=== PATIENT | female | born 1965 | race Caucasian/White ===

== ENCOUNTER 2019-02-27 13:18 | Emergency (ER) | payer SELFPAY ==
[2019-02-27] MEDS ORDERED: DICYCLOMINE HCL 10 MG CAP ONE (14:18)
[2019-02-27] MEDS ORDERED: ONDANSETRON 4 MG/2 ML VIAL ONE (14:19)
[2019-02-27] MEDS ORDERED: NA CHLORIDE 0.9% 1,000 ML ONE (14:19)
[2019-02-27 14:39] LABS: Absolute Lymphocytes (CBC) 1.2 K/uL (0.7-4.9); Basophils % 0.3 % (0-1.3); Hematocrit 40.4 % (36.0-45.0); Lymphocytes % 12.5 % (15.3-44.8); MPV 9.9 fL (7.6-11.3); RBC Red Blood Cell Count 4.94 M/uL (3.86-4.86)
[2019-02-27 14:51] LABS: Albumin 3.4 g/dL (3.4-5.0); Bilirubin Direct 0.1 mg/dL (0-0.2); Bilirubin Total 0.4 mg/dL (0.2-1.0); Potassium 3.5 mmol/L (3.5-5.1); Protein, Total 6.7 g/dL (6.4-8.2)
--- NOTE | 2019-02-27 15:17 | EDPHYS ---
Physician Documentation [facility] Name: Patrizia Montelongo Age: 53 yrs Sex: Female : 1965 Arrival Date: 02/27/2019 Time: 13:23 Bed 6 Private MD: ED Physician Chung Painter HPI: 02/27 14:25 This 53 yrs old Female presents to ER via Ambulatory with complaints of kb Abdominal Pain, Nausea/Vomiting/Diarrhea. 14:25 The patient presents with abdominal pain that is diffuse. Onset: The symptoms/episode kb began/occurred 4 day(s) ago. The symptoms do not radiate. Associated signs and symptoms: Pertinent positives: nausea, vomiting, and diarrhea. The symptoms are described as intermittent. Modifying factors: The symptoms are alleviated by nothing, the symptoms are aggravated by food. Severity of pain: At its worst the pain was moderate in the emergency department the pain is unchanged. The patient has not experienced similar symptoms in the past. The patient has not recently seen a physician. Historical: - Allergies: 13:25 peroxide; sv - PMHx: 13:25 None; sv - PSHx: 13:25 Tonsillectomy; sv - Immunization history:: Adult Immunizations up to date. - Social history:: Smoking status: Patient/guardian denies using tobacco. - Ebola Screening: : No symptoms or risks identified at this time. ROS: 14:24 Constitutional: Negative for fever, chills, and weight loss, ENT: Negative for injury, kb pain, and discharge, Neck: Negative for injury, pain, and swelling, Cardiovascular: Negative for chest pain, palpitations, and edema, Respiratory: Negative for shortness of breath, cough, wheezing, and pleuritic chest pain, Back: Negative for injury and pain, : Negative for injury, bleeding, discharge, and swelling, MS/Extremity: Negative for injury and deformity, Skin: Negative for injury, rash, and discoloration, Neuro: Negative for headache, weakness, numbness, tingling, and seizure. 14:24 Abdomen/GI: Positive for abdominal pain, nausea, vomiting, and diarrhea, Negative for constipation, abdominal distension, anorexia. Exam: 14:24 Constitutional: This is a well developed, well nourished patient who is awake, alert, kb and in no acute distress. Head/Face: Normocephalic, atraumatic. ENT: Nares patent. No nasal discharge, no septal abnormalities noted. Tympanic membranes are normal and external auditory canals are clear. Oropharynx with no redness, swelling, or masses, exudates, or evidence of obstruction, uvula midline. Mucous membranes moist. Neck: Trachea midline, no thyromegaly or masses palpated, and no cervical lymphadenopathy. Supple, full range of motion without nuchal rigidity, or vertebral point tenderness. No Meningismus. Chest/axilla: Normal chest wall appearance and motion. Nontender with no deformity. No lesions are appreciated. Cardiovascular: Regular rate and rhythm with a normal S1 and S2. No gallops, murmurs, or rubs. Normal PMI, no JVD. No pulse deficits. Respiratory: Lungs have equal breath sounds bilaterally, clear to auscultation and percussion. No rales, rhonchi or wheezes noted. No increased work of breathing, no retractions or nasal flaring. Abdomen/GI: Soft, non-tender, with normal bowel sounds. No distension or tympany. No guarding or rebound. No evidence of tenderness throughout. Back: No spinal tenderness. No costovertebral tenderness. Full range of motion. Skin: Warm, dry with normal turgor. Normal color with no rashes, no lesions, and no evidence of cellulitis. MS/ Extremity: Pulses equal, no cyanosis. Neurovascular intact. Full, normal range of motion. Neuro: Awake and alert, GCS 15, oriented to person, place, time, and situation. Cranial nerves II-XII grossly intact. Motor strength 5/5 in all extremities. Sensory grossly intact. Cerebellar exam normal. Normal gait. Vital Signs: 13:25 BP 145 / 97; Pulse 92; Resp 20; Temp 97.7; Pulse Ox 97% ; Weight 125.65 kg; Height 5 sv ft. 7 in. (170.18 cm); 13:25 Body Mass Index 43.38 (125.65 kg, 170.18 cm) sv MDM: 14:06 Patient medically screened. kb 14:24 Data reviewed: vital signs, nurses notes. Data interpreted: Pulse oximetry: on room air kb is 97 %. Interpretation: normal. 15:12 Counseling: I had a detailed discussion with the patient and/or guardian regarding: the kb historical points, exam findings, and any diagnostic results supporting the discharge/admit diagnosis, lab results, the need for outpatient follow up, a family practitioner, to return to the emergency department if symptoms worsen or persist or if there are any questions or concerns that arise at home. ED course: Pt reports she is feeling better after zofran. Educated on diagnostics. Pt has no abd tenderness and WCB is within normal limits. Pt educated to return for fever or worsening symptoms to be reevaluated for possible need for CT scan. 02/27 14:12 Order name: Basic Metabolic Panel; Complete Time: 14:53 kb 02/27 14:12 Order name: CBC with Diff; Complete Time: 14:53 kb 02/27 14:12 Order name: Hepatic Function; Complete Time: 14:53 kb 02/27 14:12 Order name: Lipase; Complete Time: 14:53 kb 02/27 14:12 Order name: IV Saline Lock; Complete Time: 14:32 kb 02/27 14:12 Order name: Labs collected and sent; Complete Time: 14:33 kb Administered Medications: 04:27 Drug: NS 0.9% 1000 ml Route: IV; Rate: 1000 ml; Site: left antecubital; sg 14:27 Drug: Zofran 4 mg Route: IVP; Site: left antecubital; sg 14:32 Drug: Bentyl 20 mg Route: PO; sg Disposition: 16:06 Co-signature as Attending Physician, Chung Painter MD. rn Disposition: 02/27/19 15:17 Discharged to Home. Impression: Nausea and vomiting, Diarrhea, unspecified, Generalized abdominal pain. - Condition is Stable. - Discharge Instructions: Food Choices to Help Relieve Diarrhea, Adult, Viral Gastroenteritis, Adult, [id number], Nausea and Vomiting, Adult, [id number], Abdominal Pain, Adult, [id number], Diarrhea, Adult, [id number]. - Prescriptions for Bentyl 20 mg Oral Tablet - take 1 tablet by ORAL route every 6 hours As needed; 20 tablet. Zofran 4 mg Oral Tablet - take 1 tablet by ORAL route every 6 hours As needed; 20 tablet. - Medication Reconciliation Form, Thank You Letter, Antibiotic Education, Prescription Opioid Use form. - Follow up: Emergency Department; When: As needed; Reason: Worsening of condition. Follow up: Private Physician; When: 2 - 3 days; Reason: Recheck today's complaints, Continuance of care, Re-evaluation by your physician. Signatures: Dispatcher [employer] EDDelmi Saunders, APPARATUS ENGINEERING TECHNOLOGIST-C APPARATUS ENGINEERING TECHNOLOGIST-Nhung Knott, RN RN Danny Saha RN RN sg Nieto, Roman, MD MD rn Calderon, Audri, RN RN aa5 Corrections: (The following items were deleted from the chart) 15:44 15:17 02/27/2019 15:17 Discharged to Home. Impression: Nausea and vomiting; Diarrhea, aa5 unspecified; Generalized abdominal pain. Condition is Stable. Forms are Medication Reconciliation Form, Thank You Letter, Antibiotic Education, Prescription Opioid Use. Follow up: Emergency Department; When: As needed; Reason: Worsening of condition. Follow up: Private Physician; When: 2 - 3 days; Reason: Recheck today's complaints, Continuance of care, Re-evaluation by your physician. kb
--- NOTE | 2019-02-27 15:17 | ER ---
Nurse's Notes [facility] Name: Patrizia Montelongo Age: 53 yrs Sex: Female : 1965 Arrival Date: 02/27/2019 Time: 13:23 Bed 6 Private MD: Diagnosis: Nausea and vomiting;Diarrhea, unspecified;Generalized abdominal pain Presentation: 02/27 13:24 Presenting complaint: Patient states: LUQ pain, n/v/d x 4 days. Transition of care: sv patient was not received from another setting of care. Onset of symptoms was February 23, 2019. Risk Assessment: Do you want to hurt yourself or someone else? Patient reports no desire to harm self or others. Initial Sepsis Screen: Does the patient meet any 2 criteria? No. Patient's initial sepsis screen is negative. Does the patient have a suspected source of infection? No. Patient's initial sepsis screen is negative. Care prior to arrival: None. 13:24 Method Of Arrival: Ambulatory sv 13:24 Acuity: BENITA 3 sv Historical: - Allergies: 13:25 peroxide; sv - PMHx: 13:25 None; sv - PSHx: 13:25 Tonsillectomy; sv - Immunization history:: Adult Immunizations up to date. - Social history:: Smoking status: Patient/guardian denies using tobacco. - Ebola Screening: : No symptoms or risks identified at this time. Screenin:33 Abuse screen: Denies threats or abuse. Denies injuries from another. Nutritional sg screening: No deficits noted. Tuberculosis screening: No symptoms or risk factors identified. Never had TB. Assessment: 14:33 General: Appears in no apparent distress. well groomed, well developed, well nourished, sg Behavior is calm, cooperative, appropriate for age, drowsy, quiet. Pain: Complains of pain in epigastric area, right upper quadrant and left upper quadrant Quality of pain is described as aching. Neuro: Level of Consciousness is awake, alert, obeys commands, Oriented to person, place, time, situation, Moves all extremities. Speech is normal, Facial symmetry appears normal. Cardiovascular: Capillary refill is brisk in bilateral fingers Patient's skin is warm and dry. Chest pain is denied. Respiratory: Airway is patent Respiratory effort is even, unlabored, Respiratory pattern is regular, symmetrical. GI: Abdomen is round non-distended. : No signs and/or symptoms were reported regarding the genitourinary system. EENT: No signs and/or symptoms were reported regarding the EENT system. Derm: Skin is pink, warm \T\ dry. Musculoskeletal: Circulation, motion, and sensation intact. Range of motion: intact in all extremities. Vital Signs: 13:25 BP 145 / 97; Pulse 92; Resp 20; Temp 97.7; Pulse Ox 97% ; Weight 125.65 kg; Height 5 sv ft. 7 in. (170.18 cm); 13:25 Body Mass Index 43.38 (125.65 kg, 170.18 cm) sv ED Course: 13:23 Patient arrived in ED. sv 13:24 Triage completed. sv 13:26 Arm band placed on. sv 13:48 Delmi Key FNP-C is [facility]. kb 13:48 Chung Painter MD is Attending Physician. kb 14:17 Danny Seth, RN is Primary Nurse. sg 14:27 No provider procedures requiring assistance completed. Initial lab(s) drawn, by or, sg sent to lab. Inserted saline lock: 22 gauge in left antecubital area, using aseptic technique. Blood collected. Administered Medications: 04:27 Drug: NS 0.9% 1000 ml Route: IV; Rate: 1000 ml; Site: left antecubital; sg 14:27 Drug: Zofran 4 mg Route: IVP; Site: left antecubital; sg 14:32 Drug: Bentyl 20 mg Route: PO; sg Outcome: 15:17 Discharge ordered by MD. kb 15:44 Patient left the ED. aa5 Signatures: Delmi Key FNP-C FNP-Ckb Verde, Stephanie, RN RN Danny Seth, RN RN Vaishnavi Allen RN RN aa5
[2019-02-27 15:50] VITALS: BP 145/97; TEMP 97.7; O2SAT 97
== END 2019-02-27 15:44 | disposition home or self-care (01) ==
LOC: ER 13:18
DX: R11.2 Nausea with vomiting, unspecified (principal); R19.7 Diarrhea, unspecified; R10.84 Generalized abdominal pain
CPT/HCPCS: 36415; 80048; 80076; 83690; 85025; 96374; 99283; J2405; J7030

== ENCOUNTER 2019-11-08 21:46 | Emergency (ER) | payer OTHER ==
[2019-11-08] MEDS ORDERED: ACETAMINOPHEN 500 MG TAB ONE (22:49)
[2019-11-08] MEDS ORDERED: NA CHLORIDE 0.9% 1,000 ML ONE (22:49)
[2019-11-08] MEDS ORDERED: ONDANSETRON 4 MG/2 ML VIAL ONE (22:57)
[2019-11-08 23:07] LABS: Arterial Blood Carboxyhemoglob 1.7 % (0-1.5); Blood Gas Oxyhemoglobin 92.9 % (94-97); Blood O2 Saturation 95.5 % (92-98.5)
[2019-11-08 23:27] LABS: Absolute Lymphocytes (CBC) 0.8 K/uL (0.7-4.9); Basophils % 0.2 % (0-1.3); Hematocrit 36.8 % (36.0-45.0); Lymphocytes % 6.1 % (15.3-44.8); MPV 10.5 fL (7.6-11.3); RBC Red Blood Cell Count 4.49 M/uL (3.86-4.86)
[2019-11-08 23:31] LABS: Protime INR 1.16
[2019-11-08 23:40] LABS: Urine Bacteria 20-50 /HPF (<20); Urine Culture Reflex Order REFLEXED
[2019-11-08 23:41] LABS: Urine RBC <5 /HPF (NONE SEEN)
[2019-11-08 23:49] LABS: ALT/SGPT 12 U/L (12-78); AST/SGOT 9 U/L (15-37); Albumin 3.1 g/dL (3.4-5.0); Alkaline Phosphatase 136 U/L (45-117); BUN Blood Urea Nitrogen 9 mg/dL (7-18); Bicarbonate 24 mmol/L (21-32); Bilirubin Direct 0.2 mg/dL (0-0.2); Bilirubin Total 0.7 mg/dL (0.2-1.0); Ferritin 145.4 ng/mL (8-388); Glucose Level 138 mg/dL (74-106); Lipase 34 U/L (73-393); Potassium 3.7 mmol/L (3.5-5.1); Protein, Total 7.1 g/dL (6.4-8.2); Sodium Level 139 mmol/L (136-145); Troponin (Emerg Dept Use Only) < 0.02 ng/mL (0.0-0.045)
--- NOTE | 2019-11-09 01:24 | EDPHYS ---
Physician Documentation [facility] Name: Patrizia Montelongo Age: 54 yrs Sex: Female : 1965 Arrival Date: 11/08/2019 Time: 21:49 Bed 15 Private MD: ED Physician Ronnie Uribe HPI: 11/07 22:34 This 54 yrs old Female presents to ER via Ambulatory with complaints of pkl Nausea/Vomiting, Breathing Difficulty. 22:34 The patient has shortness of breath at rest. Onset: The symptoms/episode began/occurred pkl 3 day(s) ago. Associated signs and symptoms: Pertinent positives: fever, nausea, vomiting, diarrhea and bodyaches. 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 - Social history:: Smoking status: Patient denies any tobacco usage or history of. ROS: 22:34 Eyes: Negative for injury, pain, redness, and discharge, ENT: Negative for injury, pkl pain, and discharge, Neck: Negative for injury, pain, and swelling, Cardiovascular: Negative for chest pain, palpitations, and edema. 22:34 Respiratory: Positive for shortness of breath. 22:34 Abdomen/GI: Positive for nausea, vomiting, and diarrhea. 22:34 Back: Negative for acute changes. 22:34 : Negative for urinary symptoms. 22:34 MS/extremity: Negative for acute changes. 22:34 Skin: Negative for rash. 22:34 Neuro: Negative for altered mental status, loss of consciousness. Exam: 22:34 Head/Face: Normocephalic, atraumatic. Eyes: Pupils equal round and reactive to light, pkl extra-ocular motions intact. Lids and lashes normal. Conjunctiva and sclera are non-icteric and not injected. Cornea within normal limits. Periorbital areas with no swelling, redness, or edema. ENT: Nares patent. No nasal discharge, no septal abnormalities noted. Tympanic membranes are normal and external auditory canals are clear. Oropharynx with no redness, swelling, or masses, exudates, or evidence of obstruction, uvula midline. Mucous membranes moist. Neck: Trachea midline, no thyromegaly or masses palpated, and no cervical lymphadenopathy. Supple, full range of motion without nuchal rigidity, or vertebral point tenderness. No Meningismus. Chest/axilla: Normal chest wall appearance and motion. Nontender with no deformity. No lesions are appreciated. Cardiovascular: Regular rate and rhythm with a normal S1 and S2. No gallops, murmurs, or rubs. Normal PMI, no JVD. No pulse deficits. 22:34 Respiratory: the patient does not display signs of respiratory distress, Respirations: normal, Breath sounds: are clear throughout. 22:34 Abdomen/GI: Bowel sounds: normal, Palpation: abdomen is soft and non-tender, in all quadrants. 22:34 Back: Exam negative for acute changes. 22:34 : Exam negative for acute changes. 22:34 Musculoskeletal/extremity: Exam is negative for acute changes. 22:34 Skin: Exam negative for rash. 22:34 Neuro: Orientation: is normal, Mentation: is normal, Cranial nerves: grossly normal, Motor: is normal. Vital Signs: 21:53 BP 142 / 70; Pulse 88; Resp 18; Pulse Ox 100% on R/A; sg 22:19 Temp 99.9(O); Weight 117.93 kg; rv 23:00 BP 138 / 76; Pulse 106; Resp 21; Pulse Ox 100% on R/A; rv 07 00:00 BP 143 / 81; Pulse 96; Resp 19; Pulse Ox 99% on R/A; rv 01:41 BP 102 / 65; Pulse 97; Resp 19; Temp 99.7; Pulse Ox 97% on R/A; rv 02:27 BP 105 / 63; Pulse 86; Resp 18; Pulse Ox 95% on R/A; ea MDM: 11/07 21:56 Patient medically screened. pkl 11/08 01:19 Data reviewed: vital signs, nurses notes, lab test result(s), radiologic studies, CT pkl scan, plain films. ED course: Patient feeling better. Discussed lab. and imaging studies results with patient Advised to stay home until Covid-19 results are available. To follow up with PCP in 2 to 3 days. Return if necessary. Patient understood instructions. 11/07 22:27 Order name: Blood Culture Adult (2) rv 11/07 22:27 Order name: BMP rv 11/07 22:27 Order name: C-Reactive Protein rv 11/07 22:27 Order name: CBC with Diff rv 11/07 22:27 Order name: COVID-19 rv 11/07 22:27 Order name: D-Dimer rv 11/07 22:27 Order name: Ferritin rv 11/07 22:27 Order name: Flu rv 11/07 22:27 Order name: Lactate rv 11/07 22:27 Order name: LFT's rv 11/07 22:27 Order name: Lipase; Complete Time: 23:54 rv 11/07 22:27 Order name: Procalcitonin; Complete Time: 00:44 11/07 22:27 Order name: PT-INR; Complete Time: 23:45 11/07 22:27 Order name: Ptt, Activated; Complete Time: 23:45 11/07 22:27 Order name: Strep; Complete Time: 00:44 11/07 22:27 Order name: Troponin (emerg Dept Use Only); Complete Time: 23:54 11/07 22:27 Order name: Urine Microscopic Only; Complete Time: 23:43 11/07 22:28 Order name: Blood Culture [facility] 11/07 22:28 Order name: Basic Metabolic Panel; Complete Time: 23:54 EDWI 11/07 22:28 Order name: C-Reactive Protein; Complete Time: 23:54 EDWI 11/07 22:28 Order name: CBC with Automated Diff; Complete Time: 23:37 EDWI 11/07 22:28 Order name: CORONAVIRUS [facility] 11/07 22:28 Order name: D-Dimer; Complete Time: 23:45 EDWI 11/07 22:28 Order name: Ferritin; Complete Time: 23:54 EDWI 11/07 22:28 Order name: Influenza Screen (A ; Complete Time: 00:44 EDWI 11/07 22:28 Order name: Lactate; Complete Time: 23:44 EDWI 11/07 22:28 Order name: Liver (Hepatic) Function; Complete Time: 23:54 EDWI 11/07 22:33 Order name: ABG; Complete Time: 23:17 pkl 11/07 23:44 Order name: Urine Culture [facility] 11/07 23:57 Order name: Throat Culture [facility] 11/07 22:27 Order name: CXR XRAY 11/07 22:27 Order name: EKG; Complete Time: 22:29 11/07 22:27 Order name: Cardiac monitoring; Complete Time: 23:00 11/07 22:27 Order name: Document PUI#; Complete Time: 23:00 11/07 22:27 Order name: Droplet/Contact Precautions; Complete Time: 23:00 11/07 22:27 Order name: EKG - Nurse/Tech; Complete Time: 23:00 11/07 22:27 Order name: IV Start; Complete Time: 23:00 11/07 22:27 Order name: Labs collected and sent; Complete Time: 23:00 11/07 22:27 Order name: Notify Health Dept [phone]/ ; Complete Time: 23:00 11/07 22:27 Order name: O2 Per Protocol; Complete Time: 23:00 11/07 22:27 Order name: O2 Sat Monitoring; Complete Time: 23:00 11/07 22:27 Order name: Urine Dipstick-Ancillary (obtain specimen); Complete Time: 23:00 11/07 23:47 Order name: CT Chest For PE Angio pkl 11/07 23:47 Order name: CT Abd/Pelvis - IV Contrast Only pkl Administered Medications: 11/07 22:45 Drug: Tylenol 1000 mg Route: PO; rv 11/08 01:49 Follow up: Response: No adverse reaction ea 11/07 22:45 Drug: NS 0.9% (30 ml/kg) 30 ml/kg Route: IV; Rate: bolus; Site: right antecubital; rv 11/08 01:49 Follow up: Response: No adverse reaction; IV Status: Completed infusion; IV Intake: ea 1000ml 11/07 23:05 Drug: Zofran (Ondansetron) 4 mg Route: IVP; Site: right antecubital; rv 11/08 01:49 Follow up: Response: No adverse reaction; Nausea is decreased ea 01:38 Drug: Rocephin 1 grams Route: IV; Rate: calculated rate; Site: right antecubital; ea 02:28 Follow up: Response: No adverse reaction; IV Status: Completed infusion ea Disposition: 11/09/19 01:24 Discharged to Home. Impression: Fever. Dyspnea. urinary tract infection. - Condition is Stable. - Prescriptions for Zofran 4 mg Oral Tablet - take 1 tablet by ORAL route every 12 hours As needed; 10 tablet. Cipro 500 mg Oral Tablet - take 1 tablet by ORAL route every 12 hours for 7 days; 14 tablet. - Medication Reconciliation Form, Thank You Letter, Antibiotic Education, Prescription Opioid Use form. - Follow up: Private Physician; When: 2 - 3 days; Reason: Re-evaluation by your physician. - Problem is new. - Symptoms have improved. Signatures: Dispatcher [employer] EDDanny Holden RN RN Ronnie Arredondo MD MD pkAshley Lozada RN RN Jair Almendarez RN RN rv Corrections: (The following items were deleted from the chart) 02:30 01:24 11/09/2019 01:24 Discharged to Home. Impression: Fever. Dyspnea. urinary tract ea infection. Condition is Stable. Forms are Medication Reconciliation Form, Thank You Letter, Antibiotic Education, Prescription Opioid Use. Follow up: Private Physician; When: 2 - 3 days; Reason: Re-evaluation by your physician. Problem is new. Symptoms have improved. pkl
--- NOTE | 2019-11-09 01:24 | ER ---
Nurse's Notes [facility] Name: Patrizia Montelongo Age: 54 yrs Sex: Female : 1965 Arrival Date: 11/08/2019 Time: 21:49 Bed 15 Private MD: Diagnosis: Fever. Dyspnea. urinary tract infection Presentation: 11/07 21:53 Chief complaint: Patient states: I have had shortness of breath that is worse when Im sg up and walking around, I also have had nausea and vomited x1 today. Coronavirus screen: Patient reports shortness of breath or difficulty breathing. Ebola Screen: Patient negative for fever greater than or equal to 101.5 degrees Fahrenheit, and additional compatible Ebola Virus Disease symptoms Patient denies exposure to infectious person. Patient denies travel to an Ebola-affected area in the 21 days before illness onset. No symptoms or risks identified at this time. Initial Sepsis Screen: Does the patient meet any 2 criteria? No. Patient's initial sepsis screen is negative. Does the patient have a suspected source of infection? No. Patient's initial sepsis screen is negative. Risk Assessment: Do you want to hurt yourself or someone else? Patient reports no desire to harm self or others. Onset of symptoms was November 08, 2019. Care prior to arrival: None. 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 - Social history:: Smoking status: Patient denies any tobacco usage or history of. Screenin:03 Abuse screen: Denies threats or abuse. Denies injuries from another. Nutritional rv screening: No deficits noted. Tuberculosis screening: No symptoms or risk factors identified. Fall Risk None identified. Assessment: 22:15 General: Appears uncomfortable, Behavior is calm, cooperative. Pain: Complains of pain rv in head. Neuro: Level of Consciousness is awake, alert, obeys commands, Oriented to person, place, time, situation. Cardiovascular: Patient's skin is warm and dry. Rhythm is sinus tachycardia. Respiratory: Airway is patent Respiratory effort is even, unlabored, Respiratory pattern is tachypnea. GI: Abdomen is round non-distended, Reports nausea, vomiting. : No signs and/or symptoms were reported regarding the genitourinary system. Derm: Skin is intact. Musculoskeletal: Reports muscle aches. 11/08 00:20 Reassessment: Patient and/or family updated on plan of care and expected duration. Pain rv level reassessed. Patient is alert, oriented x 3, equal unlabored respirations, skin warm/dry/pink. Patient states symptoms have improved. Respiratory: Airway is patent Respiratory effort is even, unlabored, Respiratory pattern is regular. 01:18 Reassessment: Provider at bedside updating pt on plan of care, verbalized the ea instruction to self quarantine until covid results have resulted. 01:48 Reassessment: Patient and/or family updated on plan of care and expected duration. Pain ea level reassessed. Patient is alert, oriented x 3, equal unlabored respirations, skin warm/dry/pink. Discharge instruction given to patient, verbalized the understanding of instruction, awaiting on IV antibiotics to complete. 02:29 Reassessment: Patient and/or family updated on plan of care and expected duration. Pain ea level reassessed. Patient is alert, oriented x 3, equal unlabored respirations, skin warm/dry/pink. Pt left ED ambulatory, tolerating well. Vital Signs: 11/07 21:53 BP 142 / 70; Pulse 88; Resp 18; Pulse Ox 100% on R/A; sg 22:19 Temp 99.9(O); Weight 117.93 kg; rv 23:00 BP 138 / 76; Pulse 106; Resp 21; Pulse Ox 100% on R/A; rv 11/08 00:00 BP 143 / 81; Pulse 96; Resp 19; Pulse Ox 99% on R/A; rv 01:41 BP 102 / 65; Pulse 97; Resp 19; Temp 99.7; Pulse Ox 97% on R/A; rv 02:27 BP 105 / 63; Pulse 86; Resp 18; Pulse Ox 95% on R/A; ea ED Course: 11/07 21:49 Patient arrived in ED. bp1 21:53 Arm band placed on. sg 21:55 Triage completed. sg 21:56 Ronnie Uribe MD is Attending Physician. pkl 22:01 Jair Calderon RN is Primary Nurse. rv 22:45 Initial lab(s) drawn, by ED staff, sent to lab. First set of blood cultures drawn by ED rv staff. Inserted saline lock: 20 gauge in right antecubital area, using aseptic technique. Blood collected. 22:50 CXR XRAY In Process Unspecified. EDMS 23:04 Patient has correct armband on for positive identification. Bed in low position. Call rv light in reach. site monitor on. Pulse ox on. NIBP on. 11/08 00:20 No provider procedures requiring assistance completed. rv 00:58 CT Chest For PE Angio In Process Unspecified. EDMS 00:58 CT Abd/Pelvis - IV Contrast Only In Process Unspecified. EDMS 02:28 IV discontinued, intact, bleeding controlled, No redness/swelling at site. Pressure ea dressing applied. Administered Medications: 11/07 22:45 Drug: Tylenol 1000 mg Route: PO; rv 11/08 01:49 Follow up: Response: No adverse reaction ea 11/07 22:45 Drug: NS 0.9% (30 ml/kg) 30 ml/kg Route: IV; Rate: bolus; Site: right antecubital; rv 11/08 01:49 Follow up: Response: No adverse reaction; IV Status: Completed infusion; IV Intake: ea 1000ml 11/07 23:05 Drug: Zofran (Ondansetron) 4 mg Route: IVP; Site: right antecubital; rv 11/08 01:49 Follow up: Response: No adverse reaction; Nausea is decreased ea 01:38 Drug: Rocephin 1 grams Route: IV; Rate: calculated rate; Site: right antecubital; ea 02:28 Follow up: Response: No adverse reaction; IV Status: Completed infusion ea Intake: 01:49 IV: 1000ml; Total: 1000ml. ea Outcome: 01:24 Discharge ordered by . pkl 01:48 Discharge instructions given to patient, Instructed on discharge instructions, follow ea up and referral plans. Demonstrated understanding of instructions, follow-up care, medications, Prescriptions given X 2. 02:28 Discharged to home ambulatory, with family. ea 02:28 Condition: stable 02:30 Patient left the ED. ea Addendum: 11/15/2019 07:54 Addendum: Culture Results: Positive urine culture. Positive blood culture. No further s g action required. Bacteria sensitive to prescribed antibiotic. 10:52 Addendum: COVID-19 Result: Negative result given to RN to notify pt. Contacted by: triny Garrido RN. Notified pt of negative COVID 19 swab results. Pt advised that even with a negative test result they should remain in isolation until symptom free for 3 days without medication. Pt also advised to return to the ED for worsening symptoms. Signatures: Dispatcher [employer] EDNY Ellen Arevalo, RN JOSHUA dm5 Danny Seth RN RN sg Lam, Pin, MD MD pkl Antunez, Elena RN Jair Banks ea RN JOSHUA [facility] [place] bp1 Corrections: (The following items were deleted from the chart) 11/07 22: 23:01 General: Appears uncomfortable, Behavior is calm, cooperative, rv rv : 23:01 Pain: Complains of pain in head rv rv : 23:01 Neuro: Level of Consciousness is awake, alert, obeys commands, Oriented to rv person, place, time, situation, rv : 23:01 Cardiovascular: Patient's skin is warm and dry. Rhythm is sinus tachycardia rv rv : 23:01 Respiratory: Airway is patent Respiratory effort is even, unlabored, Respiratory rv pattern is tachypnea rv : 23:01 GI: Abdomen is round non-distended, Reports nausea, vomiting, rv rv : 23:01 : No signs and/or symptoms were reported regarding the genitourinary system. rv rv : 23:01 Derm: Skin is intact, rv rv : 23:01 Musculoskeletal: Reports muscle aches rv rv : 23:00 Inserted saline lock: 20 gauge in right antecubital area, using aseptic rv technique. Blood collected. rv : 23:00 Initial lab(s) drawn, by ED staff, sent to lab. First set of blood cultures drawn rv by ED staff, rv 11/14 07:54 07:54 Addendum: Culture Results: Positive urine culture. Positive blood culture. sg
[2019-11-09] MEDS ORDERED: CEFTRIAXONE/SWI 1gm 1 GM/10 ML SYR ONE (01:39)
[2019-11-09 02:58] VITALS: TEMP 99.7
[2019-11-09 03:00] VITALS: BP 105/63; O2SAT 95
--- NOTE | 2019-11-09 07:32 | RAD REPORT ---
EXAM DESCRIPTION: RAD - Chest Single View - 11/08/2019 10:50 pm CLINICAL HISTORY: DYSPNEA COMPARISON: None TECHNIQUE: AP portable chest image was obtained 11/08/2019 10:50 pm . FINDINGS: Lung volumes are relatively low. Portable technique, shallow inspiration and large body phoenix bitus affects limit the examination. No focal mass or consolidation. No significant lung parenchymal process identified. Failure and volum e overload are not suspected. Heart and vasculature are normal. No measurable pleural effusion and no pneumothorax. No acute bony abnormality seen. No acute aortic findings suspected. IMPRESSION: Limited portable study without acute cardiopulmonary finding.
--- NOTE | 2019-11-09 10:55 | EKG ---
Test Date: 2019-11-08 Test Time: 22:52:36 Hay Chopper: E MEASUREMENT RESULTS: Intervals: Rate: 106 SD: 156 QRSD: 94 QT: 346 QTc: 459 [place]: P: 51 SD: 156 QRS: 45 T: 37 INTERPRETIVE STATEMENTS: Sinus tachycardia Nonspecific T wave abnormality Abnormal ECG No previous ECG available for comparison Electronically Signed On 11-09-19 10:53:53 CDT by Mio Mejia
--- NOTE | 2019-11-09 12:42 | RAD REPORT ---
EXAM DESCRIPTION: CT - Chest For Pe Angio - 11/09/2019 3:48 am CLINICAL HISTORY: The patient is 54 years old and is Female; DYSPNEA TECHNIQUE: Axial computed tomographic angiography images of the chest and axial computed tomography images of the abdomen and pelvis with intravenous contrast. This CT exam was performed using one or more of the following dose reduction techniques: automated exposure control, adjustment of the mA and/or kV according to patient size, and/or use of iterative reconstruction technique. MIP reconstructed images were created and reviewed. DLP: 3553 mGy*cm COMPARISON: None. FINDINGS: CHEST: AORTA: No acute findings. No aortic aneurysm. No dissection. PULMONARY ARTERIES: Unremarkable as visualized. No pulmonary embolism is identified. GREAT VESSELS OF AORTIC ARCH: No acute findings. No dissection. No arterial occlusion or signi ficant stenosis. LUNGS: Mild scattered atelectasis or scarring. No focal consolidation. PLEURAL SPACE: Unremarkable. No significant effusion. No pneumothorax. HEART: Unremarkable. No cardiomegaly. No significant pericardial effusion. ABDOMEN: LIVER: Unremarkable. No mass. GALLBLADDER AND BILE DUCTS: Unremarkable. No calcified stones. No ductal dilation. PANCREAS: Unremarkable. No ductal dilation. No mass. SPLEEN: Unremarkable. No splenomegaly. ADRENALS: Unremarkable. No mass. KIDNEYS AND URETERS: Unremarkable. No hydronephrosis. No solid mass. STOMACH AND BOWEL: Unremarkable. No obstruction. No mucosal thickening. PELVIS: APPENDIX: The appendix is seen and is within normal limits. BLADDER: Bladder is decompressed with circumferential bladder wall thickening. Mild perivesical st randing. REPRODUCTIVE: Unremarkable as visualized. CHEST, ABDOMEN and PELVIS: INTRAPERITONEAL SPACE: Unremarkable. No significant fluid collection. No free air. BONES/JOINTS: Straightening of thoracic kyphosis. Prior L1 superior endplate compression fracture deformity with mild retropulsion. L5-S1 degenerative changes. No dislocation. SOFT TISSUES: Unremarkable. LYMPH NODES: Unremarkable. No enlarged lymph nodes. IMPRESSION: 1. No pulmonary embolism. No acute intrathoracic abnormality. 2. Bladder is decompressed with circumferential wall thickening. Mild perivesical stranding. Tuyet elation with urinalysis for signs of cystitis. 3. Prior L1 superior endplate compression fracture. Electronically signed by: Daniel Braun DO 11/09/2019 1:09 AM CDT Due to temporary technical issues with the PACS/Fluency reporting system, reports are being signed by the in house radiologist without review as a courtesy to ensure prompt reporting. The interpreting r adiologist is fully responsible for the content of the report.
--- NOTE | 2019-11-09 12:46 | RAD REPORT ---
EXAM DESCRIPTION: CT - Abdomen Pelvis W Contrast - 11/09/2019 3:45 am CLINICAL HISTORY: The patient is 54 years old and is Female; DYSPNEA TECHNIQUE: Axial computed tomographic angiography images of the chest and axial computed tomography images of the abdomen and pelvis with intravenous contrast. This CT exam was performed using one or more of the following dose reduction techniques: automated exposure control, adjustment of the mA and/or kV according to patient size, and/or use of iterative reconstruction technique. MIP reconstructed images were created and reviewed. DLP: 3553 mGy*cm COMPARISON: None. FINDINGS: CHEST: AORTA: No acute findings. No aortic aneurysm. No dissection. PULMONARY ARTERIES: Unremarkable as visualized. No pulmonary embolism is identified. GREAT VESSELS OF AORTIC ARCH: No acute findings. No dissection. No arterial occlusion or signi ficant stenosis. LUNGS: Mild scattered atelectasis or scarring. No focal consolidation. PLEURAL SPACE: Unremarkable. No significant effusion. No pneumothorax. HEART: Unremarkable. No cardiomegaly. No significant pericardial effusion. ABDOMEN: LIVER: Unremarkable. No mass. GALLBLADDER AND BILE DUCTS: Unremarkable. No calcified stones. No ductal dilation. PANCREAS: Unremarkable. No ductal dilation. No mass. SPLEEN: Unremarkable. No splenomegaly. ADRENALS: Unremarkable. No mass. KIDNEYS AND URETERS: Unremarkable. No hydronephrosis. No solid mass. STOMACH AND BOWEL: Unremarkable. No obstruction. No mucosal thickening. PELVIS: APPENDIX: The appendix is seen and is within normal limits. BLADDER: Bladder is decompressed with circumferential bladder wall thickening. Mild perivesical st randing. REPRODUCTIVE: Unremarkable as visualized. CHEST, ABDOMEN and PELVIS: INTRAPERITONEAL SPACE: Unremarkable. No significant fluid collection. No free air. BONES/JOINTS: Straightening of thoracic kyphosis. Prior L1 superior endplate compression fracture deformity with mild retropulsion. L5-S1 degenerative changes. No dislocation. SOFT TISSUES: Unremarkable. LYMPH NODES: Unremarkable. No enlarged lymph nodes. IMPRESSION: 1. No pulmonary embolism. No acute intrathoracic abnormality. 2. Bladder is decompressed with circumferential wall thickening. Mild perivesical stranding. Tuyet elation with urinalysis for signs of cystitis. 3. Prior L1 superior endplate compression fracture. Electronically signed by: Daniel Braun DO 11/09/2019 1:09 AM CDT Due to temporary technical issues with the PACS/Fluency reporting system, reports are being signed by the in house radiologist without review as a courtesy to ensure prompt reporting. The interpreting r adiologist is fully responsible for the content of the report.
== END 2019-11-09 02:30 | disposition home or self-care (01) ==
LOC: ER 21:46
DX: N39.0 Urinary tract infection, site not specified (principal); Z20.828 Contact with and (suspected) exposure to other viral communicable diseases; R06.00 Dyspnea, unspecified; Z91.048 Other nonmedicinal substance allergy status
CPT/HCPCS: 96365; 93005; 87040 ×2; 87070; 87088; 85025; 87086; 80048; 36415; 87205 ×3; 85610; 85379; 80076; 87081; 83605; 85730; 87077 ×3; 87186 ×3; 81015; 84484; 82728; 83690; 84145; 86140; 87804 ×2; 71275; 74177; 71045; 82805; 96375; 99284; 96366; U0001; Q9967; J0696; J7030; J2405